=== PATIENT | female | born 1985 | race Caucasian/White ===

== ENCOUNTER 2018-06-30 11:46 | Day surgery (SDC) | payer OTHER ==
--- NOTE | 2018-06-30 09:40 | PDGENHP ---
History and Physical History and Physical: Assessment and Plan: 1. Endometriosis of pelvic peritoneum Rupa's symptoms are highly suggestive of recurrent endometriosis. We reviewed all conservative and surgical options. At the end of our discussion she wishes to undergo surgical intervention. This will be a robotic excision of endometriosis and likely a bilateral oophorectomy. The risks benefits and alternatives were reviewed. She will signed a consent form the morning of surgery. We reviewed the typical postoperative course and when she can return home. 2. Pelvic pain Subjective Subjective: Patient ID: Rupa Parker is a 32 y.o. female who presents to [facility] for endometriosis. HPI Rupa Parker presents for a preoperative visit. She is scheduled for a robotic excision of endometriosis and likely a bilateral oophorectomy. The risks , benefits, and alternatives were presented and informed consent was obtained. 40 minutes of this 40 minute appointment was spent counceling, reviewing the procedure in detail, and discussing the preoperative and postoperative instructions. Below is a copy of our prior visit note. Rupa is a 32-year-old woman who presents to discuss endometriosis. She has had several laparoscopies with fulguration of endometriosis. Finally in November 2014 she underwent a laparoscopic hysterectomy with preservation of her ovaries while living in [place]. Afterwards she felt better. She then developed some bladder and bowel symptoms which have been thought to perhaps be irritable bowel. She has had some midcycle type pain. Her symptoms have progressively worsened and now become debilitating. It is low in her pelvis worse on the left than the right. The pain radiates down her thighs vagina and to her low back. She has associated bloating. She has mild dyspareunia. She has dyschezia especially with constipation. She also has dysuria and urinary frequency. She lives in [place]. 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 They have family in [place]. She is extremely tired of the pain has has greatly interfered with the quality of her life. I reviewed her operative notes. The boxing machine operator performing her laparoscopic hysterectomy noted some retroperitoneal fibrosis. PastMedicalHistory No past medical history on file. PastSurgicalHistory No past surgical history on file. CURRENT MEDICATIONS: Current Outpatient Medications Medication Sig ALPRAZolam (XANAX) 0.25 mg tablet Take 0.25 mg by mouth nightly as needed. B-complex with vitamin C (TOTAL B/C) tablet Take 1 tablet by mouth daily. cloNIDine HCl (CATAPRES) 0.1 mg tablet Take 0.1 mg by mouth. Prn lisinopril (PRINIVIL,ZESTRIL) 40 mg tablet Take 1 tablet by mouth daily. metoprolol tartrate (LOPRESSOR) 50 mg tablet Take 50 mg by mouth daily. multivit-min/iron/folic/txs279 (HAIR, SKIN AND NAILS ADVANCED PO) multivitamin (HEXAVITAMIN) per tablet Take 1 tablet by mouth daily. No current facility-administered medications for this visit. ALLERGIES: Penicillins I have reviewed, verified and agree with the past medical, surgical, , family, social and ROS history as documented by the RN today. Objective Objective: Vital Signs: There were no vitals taken for this visit. Physical Exam Gen: This is an alert, well developed woman in no distress. Neuro: She moves all extremities. Psych: She is appropriate, oriented, with normal affect. Neck: No thyroid enlargement, adenopathy, or tenderness. Lungs: Clear to ascultation, no wheezes or rales. Heart: Regular rate and rhythm without obvious murmurs. Abdomen: Soft, non-tender, without guarding, rebound, or masses. Extremities: No edema or cyanosis. Pelvic: Normal external genitalia. Non-gaping introitus, vagina without discharge, adequately estrogenized, no significant prolapse. She is tender along the vaginal cuff especially posteriorly. No obvious nodules are palpable. DATA: I have reviewed the pertinent medical records. TIME/COMMUNICATION: I personally spent a total of 60 minutes. Of that 45 minutes was counseling/ coordination of patient's care. See my note above for details. Cuauhtemoc Guillen MD Board Certified Female Pelvic Medicine and Reconstructive Surgery Director of Minimally Invasive Gynecologic Surgery, [facility] Surgeon in Minimally Invasive Gynecologic Surgery [facility] Surgeon in Robotic Surgery
[~2018-06-30 11:46] MED LIST: DEXAMETHASONE 4 MG/ML VIAL ONE; LIDOCAINE 2% 100 MG/5 ML SYR ONE; PROPOFOL 200 MG/20 ML VIAL ONE; ROCURONIUM 100 MG/10 ML VIAL ONE; fentaNYL 100 MCG/2 ML INJ ONE
[2018-06-30] MEDS ORDERED: GABAPENTIN 300 MG CAP PO ONE (12:21)
[2018-06-30] MEDS ORDERED: ACETAMINOPHEN 500 MG TAB PO ONE (12:21)
[2018-06-30] MEDS ORDERED: CLINDAMYCIN 900 MG/DEXTROSE 50 ML IV ONE (12:21)
[2018-06-30] MEDS ORDERED: PHENAZOPYRIDINE HCL 200 MG TAB PO ONE (12:21)
[2018-06-30] MEDS ORDERED: LR 1,000 ML IV ONE (12:27)
[2018-06-30] MEDS ORDERED: MIDAZOLAM 2 MG/2 ML VIAL IVP ONE (12:42)
--- NOTE | 2018-06-30 12:42 | PDANEPAE ---
ANE History of Present Illness endometriosis, here for robotic excision of lesions ANE Past Medical History - Cardiovascular History Hx Hypertension: Yes Hx Arrhythmias: No Hx Chest Pain: No Hx Coronary Artery / Peripheral Vascular Disease: No Hx CHF / Valvular Disease: No Hx Palpitations: No - Pulmonary History Hx COPD: No Hx Asthma/Reactive Airway Disease: No Hx Recent Upper Respiratory Infection: No Hx Oxygen in Use at Home: No Hx Sleep Apnea: No Sleep Apnea Screening Result - Last Documented: Negative - Neurologic History Hx Cerebrovascular Accident: No Hx Seizures: No Hx Dementia: No Neurologic History Comment: MIGRAINES - Endocrine History Hx Diabetes: No - Renal History Hx Renal Disorders: No Renal History Comment: BLADDER W/ENDOMETRIOSIS CAUSING PAIN W/URINATION. SMALL KIDNEY STONE - Liver History Hx Hepatic Disorders: No - Neurological & Psychiatric Hx Hx Neurological and Psychiatric Disorders: Yes Neurological / Psychiatric History Comment: ANXIETY - Cancer History Hx Cancer: No - Congenital Disorder History Hx Congenital Disorders: No - GI History Hx Gastrointestinal Disorders: No Gastrointestinal History Comment: IBS SXS W/ENDOMETRIOSIS - Other Health History Other Health History: NEG - Chronic Pain History Chronic Pain: Yes (ENDOMETRIOSIS, LEG,BACK & JOINT PAIN) - Surgical History Prior Surgeries: ENDOMETRIAL ABLATION X2. LAPAROSCOPY. C SECTION. DELONTE HERNIA REPAIR. PARTIAL HYSTERECTOMY ANE Review of Systems Review of Systems: - Exercise capacity METS (RN): 4 METS ANE Patient History - Allergies Allergies/Adverse Reactions: Penicillins Allergy (Verified 06/23/18 12:55) HIVES, EYES & THROAT SWELLING - Home Medications Home Medications: ALPRAZolam 06/23/18 [Last Taken Unknown] Chantix 06/23/18 [Last Taken Unknown] Citalopram 06/23/18 [Last Taken Unknown] Herbals/Supplements -Info Only 06/23/18 [Last Taken Unknown] Lisinopril 06/23/18 [Last Taken Unknown] Metoprolol Succinate 06/23/18 [Last Taken Unknown] Ondansetron 06/23/18 [Last Taken Unknown] - Smoking Hx Smoking Status: Light smoker - Family Anes Hx Family Hx Anesthesia Complications: NEG ANE Labs/Vital Signs - Vital Signs Height: 160.02 cm Weight: 74.843 kg ANE Physical Exam - Airway Neck exam: FROM Mallampati Score: Class 1 Mouth exam: normal dental/mouth exam - Pulmonary Pulmonary: no respiratory distress, no rales or rhonchi - Cardiovascular Cardiovascular: regular rate and rhythym, no murmur, rub, or gallop - ASA Status ASA Status: III ANE Anesthesia Plan Anesthesia Plan: general endotracheal anesthesia Total IV Anesthesia: No
[2018-06-30] MEDS ORDERED: BUPIVACAINE/EPI 0.5% 30 ML SDV ONE ×2 (12:59→13:14)
[2018-06-30] MEDS ORDERED: HYDROmorphONE/DILAUDID 2 MG/ML INJ ONE (13:23)
[2018-06-30] MEDS ORDERED: KETOROLAC 30 MG/1 ML SDV ONE (13:23)
[2018-06-30] MEDS ORDERED: oxyCODONE IR 5 MG TAB PO PRN (14:33)
[2018-06-30] MEDS ORDERED: NALOXONE HCL 0.4 MG/ML INJ IVP PRN (14:33)
[2018-06-30] MEDS ORDERED: DIAZEPAM 10 MG/2 ML SYR IVP PRN (14:33)
[2018-06-30] MEDS ORDERED: MEPERIDINE 25 MG/0.5 ML AMP IVP PRN (14:33)
[2018-06-30] MEDS ORDERED: HYDROmorphONE/DILAUDID 1 MG/ML INJ IVP PRN (14:33)
[2018-06-30] MEDS ORDERED: fentaNYL 100 MCG/2 ML INJ IVP PRN (14:33)
[2018-06-30] MEDS ORDERED: LR 500 ML IV PRN (14:33)
[2018-06-30] MEDS ORDERED: METOCLOPRAMIDE 10 MG/2 ML VIAL IVP PRN (14:33)
[2018-06-30] MEDS ORDERED: PROMETHAZINE HCL 25 MG/ML INJ IVP PRN (14:33)
--- NOTE | 2018-06-30 15:01 | POSTOPPROG ---
Post Op Note Date of Operation: 06/30/18 Surgeon: Cuauhtemoc Guillen Log Inspector: Kimmie Santiago Anesthesia: GET(General Endotracheal) Pre-op Diagnosis: Endometriosis Post-op Diagnosis: Same Procedure: Robotic excision of endo, bilat ureterolysis, left oophorectoy Findings: Cysto normal Inf/Abcess present in the surg proc area at time of surgery?: No EBL: Minimal Complications: none
--- NOTE | 2018-06-30 15:04 | POSTANESTH ---
Post Anesthetic Evaluation Cardiovascular Status: Normal, Stable Respiratory Status: Normal, Stable Level of Consciousness/Mental Status: Can Participate in Eval, Alert and Oriented Pain Control: Adequate, Prn Tx Ordered Nausea/Vomiting Control: Adequate, Prn Tx Ordered Complications Possibly Related to Anesthesia: None Noted
--- NOTE | 2018-06-30 15:24 | GOP ---
[f rep st] OPERATIVE REPORT DATE OF OPERATION: 06/30/2018 SURGEON: Cuauhtemoc Guillen MD SCAFFOLDER: LUIS Estevez. ANESTHESIA: General. PREOPERATIVE DIAGNOSIS: 1. Endometriosis. 2. Pelvic pain. 3. Mid cycle pain. 4. Dyschezia. 5. Urinary frequency and urgency. POSTOPERATIVE DIAGNOSIS: 1. Endometriosis. 2. Pelvic pain. 3. Mid cycle pain. 4. Dyschezia. 5. Urinary frequency and urgency. PROCEDURE PERFORMED: 1. Robotic excision of endometriosis in the anterior and posterior cul-de-sac, both pelvic sidewalls , and vaginal cuff. 2. Bilateral ureterolysis. 3. Left oophorectomy. 4. Right ovariopexy. 5. Excision of rectal lesion. FINDINGS: SPECIMENS: 1. Pelvic peritoneum with endometriosis. 1. Left ovary. 2. ESTIMATED BLOOD LOSS: Scant. DESCRIPTION OF PROCEDURE: The patient was taken to the operating room where she was identified. Gen eral anesthesia was administered and found to be adequate. She was placed in the lithotomy position and prepared and draped in normal sterile fashion. A Cortez catheter was placed in her bladder. An 8 mm infraumbilical incision was made with a scalpel. The Veress needle with the CO2 gas flowing was advanced into the peritoneal cavity. The abdomen was then insufflated with carbon dioxide gas. The 8 mm trocar, followed by the laparoscope, was then inserted. The upper abdomen was unremarkable. There was no evidence of endometriosis on either diaphragm or upper abdominal organ. Two lateral ports were placed in the right, one on the left under direct visualization. She then was placed in Trendelenburg position, and the da Francisco robot docked on the left side. The instruments w ere brought into the abdominal cavity under direct visualization. She had scattered endometriosis on the distal rectum, posterior cul-de-sac, vaginal cuff, both pelvic sidewalls, as well as the bladder peritoneum. She had endometriosis on both ovaries, minimal on the right, more so on the left. As a result, a left oophorectomy was performed. The lesions on the distal rectum were excised. These extended into the muscularis. The posterior cu l-de-sac peritoneum from the distal rectum up to the vaginal cuff and laterally to both uterosacral l igaments was then completely excised. The left infundibulopelvic vessels were then skeletonized, cau terized, and transected. A bilateral ureterolysis was required, given the endometriosis overlying justino th ureters. The peritoneum at the pelvic brim was incised. The ureters were gently dissected free f rom the pelvic brim all the way down to the bladder. Once this was accomplished, the entire pelvic s idewall peritoneum was completely excised. The entire anterior cul-de-sac peritoneum extending onto the vaginal cuff was then completely excised. Given the mid cycle pain and completely exposed retrop eritoneum, she required a right ovariopexy. The ovary was attached to the right round ligament near the internal inguinal ring with 3-0 Vicryl Rapide suture. The pelvis was then irrigated with sterile saline and hemostasis was present. Cystoscopy was then pe rformed. Both ureters had vigorous jets of urine. There was no evidence of bladder nor urethral inj ury seen. No obvious pathology was seen. During the laparoscopic portion of the procedure, near the conclusion, the bladder was back filled with 200 mL of saline and no evidence of bladder injury had been visible. There was no evidence of bladder pathology accounting for her urinary urgency and freq uency other than the endometriosis on the peritoneal side of the bladder. The bladder was then redra ined. Anesthesia was reversed. The patient was taken the PACU awake, in stable condition. COMPLICATIONS: None. DISPOSITION: Patient stable to PACU. /[id number]/MODL
[2018-06-30 17:38] VITALS: BP 88/57
== END 2018-06-30 17:25 | disposition home or self-care (01) ==
LOC: FSGY 11:46
PROVIDERS: ATTEND Obstetrics & Gynecology
PROC: 0UT14ZZ Resection of Left Ovary, Percutaneous Endoscopic Approach (ICD-10-PCS; principal; 2018-06-30 13:30)
PROC: 0DBW4ZX Excision of Peritoneum, Percutaneous Endoscopic Approach, Diagnostic (ICD-10-PCS; principal; 2018-06-30 13:30)
PROC: 0DBP4ZX Excision of Rectum, Percutaneous Endoscopic Approach, Diagnostic (ICD-10-PCS; principal; 2018-06-30 13:30)
DX: N80.3 Endometriosis of pelvic peritoneum (principal); R10.2 Pelvic and perineal pain; K59.00 Constipation, unspecified; R35.0 Frequency of micturition; R39.15 Urgency of urination
CPT/HCPCS: J1100; J1170; J1885; J1956; J2001; J2250; J2704; J3010